=== PATIENT | female | born 1940 | race Caucasian/White ===

== ENCOUNTER → 2025-02-22 | Outpatient (CLI) | payer MEDICARE, BC, SELFPAY ==
[2025-02-22 10:29] LABS: Basophils % (Auto) 1 % (0-2.5); Eosinophils # (Auto) 0.2 Thou/mm3 (0.0-0.5); Eosinophils % (Auto) 5 % (0-10); Hematocrit 37.4 % (36.0-46.0); Hemoglobin 12.3 g/dL (12.0-16.0); Immature Granulocytes % (Auto) 0 % (0-0); Immature Granulocytes Auto 0.01 Thou/mm3 (0.00-0.00); Lymphocytes # (Auto) 1.5 Thou/mm3 (1.0-4.8); Lymphocytes % (Auto) 29 % (10-50); Mean Corpuscular HGB Conc 32.9 g/dl (31.0-37.0); Mean Corpuscular Hemoglobin 30.1 pg (25.0-35.0); Mean Corpuscular Volume 91 fL (80-100); Monocytes # (Auto) 0.4 Thou/mm3 (0.0-0.8); Monocytes % (Auto) 8 % (0-12); Neutrophils # (Auto) 2.8 Thou/mm3 (1.8-7.7); Neutrophils % (Auto) 57 % (37-80); Nucleated Red Blood Cell % 0 /100 WBC (0); Platelet Count 297 Thou/mm3 (140-440); RDW Standard Deviation 46.8 fL (36.4-46.3); Red Blood Count 4.09 Miln/mm3 (4.00-5.20); White Blood Count 4.9 Thou/mm3 (3.6-11.0)
[2025-02-22 10:46] LABS: Alanine Aminotransferase 18 U/L (10-49); Albumin, Serum 4.2 gm/dL (3.4-4.8); Albumin/Globulin Ratio 1.9 (1.2-2.2); Alkaline Phosphatase 132 U/L (46-116); Anion Gap 8 (7-16); Aspartate Amino Transferase 29 U/L (0-34); BUN/Creatinine Ratio 23 Ratio (12-20); Bilirubin,Total 0.7 mg/dL (0.3-1.2); Blood Urea Nitrogen 16 mg/dL (9-23); Calcium 8.8 mg/dL (8.3-10.6); Calcium (Corrected) 8.8 mg/dL (8.5-10.1); Carbon Dioxide 31.6 mMol/L (20.0-31.0); Chloride 105 mMol/L (98-107); Creatinine (Component) 0.7 mg/dL (0.6-1.3); Globulin 2.2 gm/dL (2.3-3.5); Glucose 94 mg/dL (74-106); Osmolality,Calculated 289 (275-295); Sodium 145 mMol/L (136-145); Total Protein 6.4 gm/dL (5.7-8.2); eGFR > 60 See Note
== END | disposition home or self-care (01) ==
LOC: SCTO 08:51
PROVIDERS: PCP Family Medicine; Referring Provider Internal Medicine Hematology & Oncology; Visit Provider Internal Medicine Hematology & Oncology
DX: C50.411 Malignant neoplasm of upper-outer quadrant of right female breast (principal)
CPT/HCPCS: 36415; 80053; 85025

== ENCOUNTER 2025-02-24 09:58 | Outpatient (RCR) | payer MEDICARE, BC, SELFPAY | END 2025-02-26 23:59 | disposition home or self-care (01) | LOC: SCTC 09:58 | PROVIDERS: PCP Family Medicine; Referring Provider Family Medicine; Visit Provider Nurse Practitioner Family | DX: Z08 Encounter for follow-up examination after completed treatment for malignant neoplasm (principal); Z85.3 Personal history of malignant neoplasm of breast; M81.0 Age-related osteoporosis without current pathological fracture; Z92.21 Personal history of antineoplastic chemotherapy; Z79.811 Long term (current) use of aromatase inhibitors | CPT/HCPCS: 99212; G0463 ==

== ENCOUNTER → 2025-03-04 | Outpatient (CLI) | payer MEDICARE, BC, SELFPAY ==
[2025-03-04 10:18] LABS: Basophils % (Auto) 0 % (0-2.5); Eosinophils # (Auto) 0.2 Thou/mm3 (0.0-0.5); Eosinophils % (Auto) 4 % (0-10); Immature Granulocytes % (Auto) 0 % (0-0); Immature Granulocytes Auto 0.02 Thou/mm3 (0.00-0.00); Lymphocytes # (Auto) 1.6 Thou/mm3 (1.0-4.8); Lymphocytes % (Auto) 30 % (10-50); Mean Corpuscular HGB Conc 33.3 g/dl (31.0-37.0); Mean Corpuscular Hemoglobin 29.8 pg (25.0-35.0); Mean Corpuscular Volume 89 fL (80-100); Monocytes # (Auto) 0.4 Thou/mm3 (0.0-0.8); Monocytes % (Auto) 8 % (0-12); Neutrophils # (Auto) 3.1 Thou/mm3 (1.8-7.7); Neutrophils % (Auto) 58 % (37-80); Nucleated Red Blood Cell % 0 /100 WBC (0); Platelet Count 306 Thou/mm3 (140-440); RDW Standard Deviation 45.6 fL (36.4-46.3); Red Blood Count 4.03 Miln/mm3 (4.00-5.20); White Blood Count 5.4 Thou/mm3 (3.6-11.0)
[2025-03-04 10:33] LABS: Alanine Aminotransferase 19 U/L (10-49); Albumin, Serum 4.2 gm/dL (3.4-4.8); Albumin/Globulin Ratio 2.2 (1.2-2.2); Alkaline Phosphatase 125 U/L (46-116); Anion Gap 9 (7-16); Aspartate Amino Transferase 29 U/L (0-34); BUN/Creatinine Ratio 21 Ratio (12-20); Bilirubin,Total 0.8 mg/dL (0.3-1.2); Blood Urea Nitrogen 15 mg/dL (9-23); Calcium 9.4 mg/dL (8.3-10.6); Calcium (Corrected) 9.4 mg/dL (8.5-10.1); Chloride 103 mMol/L (98-107); Creatinine (Component) 0.7 mg/dL (0.6-1.3); Globulin 1.9 gm/dL (2.3-3.5); Glucose 93 mg/dL (74-106); Osmolality,Calculated 282 (275-295); Sodium 141 mMol/L (136-145); Total Protein 6.1 gm/dL (5.7-8.2); eGFR > 60 See Note
[2025-03-04 10:51] LABS: CA 15-3 9.8 U/mL (<32.4); Carcinoembryonic Antigen 1.8 ng/mL (0.0-5.0)
== END | disposition home or self-care (01) ==
LOC: SCTO 09:23
PROVIDERS: PCP Family Medicine; Referring Provider Nurse Practitioner Family; Visit Provider Nurse Practitioner Family
DX: C50.411 Malignant neoplasm of upper-outer quadrant of right female breast (principal); M81.0 Age-related osteoporosis without current pathological fracture
CPT/HCPCS: 36415; 80053; 82378; 85025; 86300

== ENCOUNTER → 2025-03-21 | Outpatient (CLI) | payer MEDICARE, BC, SELFPAY ==
--- NOTE | 2025-03-21 | XR_ITS ---
EXAMINATION: Cervical spine, 5 views Technique: Cervical spine AP, AP odontoid, lateral, bilateral obliques, 5 views Exam date and time: March 21, 2025 1234 hours INDICATIONS: Patient fell 4 months ago with injury to the neck, neck pain. FINDINGS: Minimal 1.5 mm anterolisthesis C5 on C6 Prominent osteopenia No acute cervical fracture Mild degenerative disc disease C6-C7 Intact odontoid Moderate bilateral neural foraminal stenosis C3-C4 C5-C6 IMPRESSION: No cervical fracture Mild degenerative disc disease C6-C7 Moderate bilateral neural foraminal stenosis C3-C4, C5-C6
--- NOTE | 2025-03-21 | XR_ITS ---
Examination: Shoulder,right, 3 views Technique: Shoulder AP internal rotation, AP external rotation, Y view shoulder, 3 views Exam date and time :March 21, 2025 1234 hours INDICATIONS: Right shoulder pain 4 months FINDINGS: Advanced osteoarthritis glenohumeral joint No shoulder fracture Calcific tendinitis IMPRESSION: Advanced osteoarthritis glenohumeral joint
== END | disposition home or self-care (01) ==
PROVIDERS: PCP Family Medicine; Referring Provider Chiropractor; Visit Provider Chiropractor
DX: M19.011 Primary osteoarthritis, right shoulder (principal); M50.323 Other cervical disc degeneration at C6-C7 level; M48.02 Spinal stenosis, cervical region; M53.1 Cervicobrachial syndrome; M99.01 Segmental and somatic dysfunction of cervical region
CPT/HCPCS: 72050; 73030

== ENCOUNTER → 2025-03-24 | Outpatient (CLI) | payer MEDICARE, BC, SELFPAY ==
--- NOTE | 2025-03-24 14:15 | XR_ITS ---
Examination: Screening digital mammography, unilateral left Computer aided detection 3-D breast Tomosynthesis, unilateral Date and time of exam: March 24, 2025, 1405 hours Compared to mammograms dating to May 05, 2008h Indication: Screening Technique: Nonmagnified MLO, CC views of the left breast to been obtained, reconstructed from 3-D Tomosynthesis images. R2 computer aided detection program utilized for evaluation of suspicious masses and/or abnormal calcifications. 3-D Tomosynthesis images obtained. Findings: The breast is heterogeneously dense, which may obscure small masses 28 mm focal asymmetry upper outer left breast Impression: BI-RADS Category 0: Incomplete: Need additional imaging evaluation 28 mm focal asymmetry upper outer left breast, recommend follow-up spot tomographic views of this asymmetry as well as left breast sonography to complete the workup.
--- NOTE | 2025-03-24 14:30 | XR_ITS ---
Examination: Bone densitometry Date and time of exam:March 24, 2025 at 1430 hours INDICATIONS: Hysterectomy age 54 vitamin D calcium 16 years, personal history osteoporosis Technique: Lumbar spine and hip total bone mineralization values of an calculated. Peak reference and age match control results have been displayed. Findings: Lumbar spine total bone mineralization is0.989 gm/cm2. This is 0.5 standard deviations below peak reference. This is 2.3 standard deviations above age-matched controls. Hip total bone mineralization is 0.587 gm/cm2 This is 2.9 standard deviations below peak reference. This is 0.7 standard deviations below age-matched controls Impression: There is normal mineralization based on lumbar spine measurements. There is osteoporosis based on hip measurements Lumbar mineralization is decreased 7.2% compared with November 21, 2022 Hip mineralization is decreased 9.6% compared with November 21, 2022
== END | disposition home or self-care (01) ==
LOC: CDIM 13:53
PROVIDERS: PCP Nurse Practitioner Family; Referring Provider Nurse Practitioner Family; Visit Provider Nurse Practitioner Family
DX: Z12.31 Encounter for screening mammogram for malignant neoplasm of breast (principal); N64.89 Other specified disorders of breast; M81.0 Age-related osteoporosis without current pathological fracture
CPT/HCPCS: 77063; 77067; 77080

== ENCOUNTER 2025-03-28 10:50 | Outpatient (RCR) | payer MEDICARE, BC, SELFPAY | END 2025-03-28 23:59 | disposition home or self-care (01) | LOC: SCTC 10:50 | PROVIDERS: PCP Family Medicine; Referring Provider Family Medicine; Visit Provider Nurse Practitioner Family | DX: M81.0 Age-related osteoporosis without current pathological fracture (principal); Z85.3 Personal history of malignant neoplasm of breast | CPT/HCPCS: 96372; 99212; J0897; G0463 ==

== ENCOUNTER → 2025-04-28 | Outpatient (CLI) | payer MEDICARE, BC, SELFPAY ==
--- NOTE | 2025-04-28 09:30 | XR_ITS ---
Examination: Breast ultrasound, unilateral, left complete Date and time of exam: April 28, 2025 0955 hours INDICATIONS: Mammogram March 24, 2025 28 mm focal asymmetry upper outer left breast, personal history right breast cancer mastectomy 2007 Technique: Real-time jon scale ultrasonographic imaging performed left breast including all 4 quadrants as well as nipple retroareolar and axillary region. Findings: 2:00 nodule indistinct margins 16 x 13 x 14 mm 3:00 intramammary lymph node 7 x 4 x 6 mm , Multiple small lymph nodes IMPRESSION: BI-RADS Category 4: Suspicious for malignancy Suspicious nodule 2:00 position left breast, biopsy is needed to exclude breast carcinoma
--- NOTE | 2025-04-28 10:00 | XR_ITS ---
Examination: Diagnostic digital mammography, unilateral, left Computer aided detection 3-D breast Tomosynthesis, unilateral Date and time of exam: April 28, 2025 1023 hours INDICATIONS: Mammogram March 24, 2025 28 mm focal asymmetry upper outer left breast Technique: Nonmagnified MLO, CC views of the left breast have been obtained, reconstructed from 3-D Tomosynthesis images. R2 computer aided detection program utilized for evaluation of suspicious masses and/or abnormal calcifications. 3-D Tomosynthesis images obtained. Findings: The breast is heterogeneously dense, which may obscure small masses 2:00 nodule is depicted, better appreciated on the left breast sonogram today Impression: BI-RADS category 4: Suspicious for malignancy 2:00 nodule, better depicted on the left breast sonogram today, on the ultrasound measuring 16 x 13 x 14 mm with indistinct margins, biopsy is needed to exclude breast carcinoma, this nodule is amenable to ultrasound-guided breast biopsy for diagnosis
== END | disposition home or self-care (01) ==
LOC: CDIM 09:30
PROVIDERS: Referring Provider Nurse Practitioner Family; Visit Provider Nurse Practitioner Family
DX: R92.342 Mammographic extreme density, left breast (principal); N63.21 Unspecified lump in the left breast, upper outer quadrant; C50.411 Malignant neoplasm of upper-outer quadrant of right female breast
CPT/HCPCS: 76641; 77061; 77065; G0279

== ENCOUNTER 2025-05-10 10:01 | Outpatient (RCR) | payer MEDICARE, BC, SELFPAY | END 2025-05-29 23:59 | disposition home or self-care (01) | LOC: SCTC 10:01 | PROVIDERS: PCP Family Medicine; Referring Provider Nurse Practitioner Family; Visit Provider Nurse Practitioner Family | DX: Z08 Encounter for follow-up examination after completed treatment for malignant neoplasm (principal); Z85.3 Personal history of malignant neoplasm of breast; Z90.11 Acquired absence of right breast and nipple; N64.89 Other specified disorders of breast; M81.0 Age-related osteoporosis without current pathological fracture | CPT/HCPCS: 99212; G0463 ==

== ENCOUNTER 2025-06-08 08:24 | Outpatient (AMB) | payer MEDICARE, BC, SELFPAY ==
--- NOTE | 2025-06-08 09:04 | AMB.GYNCLNOT ---
Vital Signs 06/08/25 09:10 Weight 70.08 kg Weight Measurement Method Standing Scale BP 186/102 H Blood Pressure Source Automatic Cuff Blood Pressure Location Right Lower Arm Position Sitting Respiration 16 Pulse 95 Pulse Source Monitor Temp 97.2 F Temp Source Oral Pulse Oximetry (%) 98 Oxygen Delivery Method Room Air Allergies/Home Meds Allergies & Medications Allergies levofloxacin Allergy (Unknown, Verified 07/01/25 16:36) Rash Medication Reconciliation cyanocobalamin (vitamin B-12) 100 mcg tablet (Vitamin B-12) 100 mcg PO QDAY #0 tabs 04/21/15 [History Confirmed 06/08/25] geriatric multivitamin-min 1 tab PO DAILY #0 tabs 04/21/15 [History Confirmed 06/08/25] glucosamine sulfate 500 mg capsule 1,500 mg PO DAILY ##0 04/21/15 [History Confirmed 06/08/25] potassium 99 mg tablet 99 mg PO DAILY #0 tabs 04/21/15 [History Confirmed 06/08/25] ascorbic acid (vitamin C) 500 mg tablet (Vitamin C) 500 mg PO QDAY 01/19/21 [History Confirmed 06/08/25] calcium 600 mg capsule 1,000 mg PO DAILY 01/19/21 [History Confirmed 06/08/25] ferrous sulfate 325 mg (65 mg iron) tablet (Iron (ferrous sulfate)) 325 mg PO QDAY 01/19/21 [History Confirmed 06/08/25] gabapentin 100 mg tablet 100 mg PO BID 01/19/21 [History Confirmed 06/08/25] magnesium 100 mg tablet 100 mg PO DAILY 01/19/21 [History Confirmed 06/08/25] metoprolol tartrate 25 mg tablet 25 mg PO QDAY 01/19/21 [History Confirmed 06/08/25] tramadol 37.5 mg-acetaminophen 325 mg tablet 1 tab PO TID PRN pain #20 tabs 07/01/25 [Rx] Intake Visit Data Collection New Patient or Established: Established Patient (seen at [facility] within 3 years) Reason for Visit:: obc Seen by Clinical Staff ONLY (RN/MA): No Cementer Hand Required: No Do You Feel Safe at Home: Yes Authorities Contacted: N/A PCP or OBGYN visit in last 3 months: Yes Hx Now: Yes Are you currently on any form of Control: No Pain Present Currently: Yes Pain Scale Used: Fitzpatrick-Beckham/Numerical Pain scale:: 0 Smoking Status Smoking Status: Never smoker 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 Menstrual regularity: irregular Monthly: No Age at menarche: 17 Menopausal: Yes Currently 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 Past Medical History: No Hx Neurological Disorders, Yes Hx Breast Cancer (RIGHT HAD MASTECTOMY), Yes Hx Cardiac Disorders, Yes Hx Hypertension (TAKES MED), Yes Hx Cancer, No Hx Blood Disorders, No Hx Anemia, No Hx Gastrointestinal Disorders, No Hx Renal Disease, No Hx Diabetes Mellitus Type 1, No Hx Diabetes Mellitus Type 2 and Yes Hx Hysterectomy (with bilateral salpinogectomy 1999) Questionnaires Covid-19 Vaccine Questionnaire Has patient been vacinated for Covid-19 Have you been vacinated for Covid-19: Yes PHQ-9 PHQ-2 Over the last 2 weeks, how often have you been bothered by any of the following problems? 1. Little interest or pleasure in doing things: not at all 2. Feeling down, depressed, or hopeless: not at all Total score: 0 PHQ-9 3. Trouble falling or staying asleep, or sleeping too much: Not at all 4. Feeling tired or having little energy: Not at all 5. Poor appetite or overeating: Not at all 6. Feeling bad about yourself - or that you are a failure or have let yourself or your family down: Not at all 7. Trouble concentrating on things, such as reading the newspaper or watching television: Not at all 8. Moving or speaking so slowly that other people could have noticed? - Or the opposite - being so fidgety or restless that you have been moving around a lot more than usual: not at all 9. Thoughts that you would be better off or of hurting yourself in some way: Not at all Total score: 0 If you checked off any problems, how difficult have these problems made it for you to do your work, take care of things at home, or get along with other people?: not difficult at all Source: Developed by Drs. Jl Esposito, Nieves Arauz, Hector Rob and colleagues, with an educational pranav from [employer]. Depression screen completed yes Social History Living Situation History Marital Status: Lives With: Family Housing: House Tobacco History Smoking Status: Never smoker Second Hand Smoke Exposure: No Alcohol History Alcohol Intake: Never Domestic Abuse History Do You Feel Safe at Home: Yes History of Present Illness HPI Narrative Pessary management Patient is an 84-year-old presenting for pessary management. She has had her pessary for 10 years, previously managed by Dr. Adkins in [place]. She reports cleaning the pessary herself at home and visiting Dr. Adkins every six months for check-ups. Three months ago, she experienced a slight kidney infection that was treated with antibiotics. She has a history of hysterectomy due to hemorrhaging and a history of breast cancer, with her right breast removed. Currently, [facility] due to a newly discovered lump in her left breast. Medical History: - Kidney infection treated with antibiotics three months ago - Breast cancer with right breast removal - Hypertension Surgical History: - Right breast removal due to breast cancer - Hysterectomy due to hemorrhaging - Gastric bypass Obstetric History: - GPAL: A0 L5 - All 5 pregnancies resulted in vaginal deliveries Medications: - Metoprolol - [id number] multivitamins Social History: - Obstetric History: 5, para 5, all vaginal deliveries Exam General General Appearance: alert, in no apparent distress and healthy appearing Head Head exam: atraumatic Neck Neck exam: Present normal inspection and trachea midline Chest Chest inspection: Present normal inspection and symmetric chest wall rise External exam: Present normal external exam; Absent tenderness Neuro Neurological exam: Present oriented X3 Psych Psychiatric exam: Present normal affect and normal mood Assessment & Plan Diagnosis / Problem List (1) POP-Q stage 3 cystocele: Status: Acute Plan Pelvic organ prolapse Assessment: Patient has been using a pessary for 10 years for management of pelvic organ prolapse. She has been self-cleaning the device at home and had regular follow-ups every six months with her previous provider. No current complaints related to the pessary were reported. Plan: - Continue current pessary use - Educate patient on signs of infection and erosion to monitor for (e.g., fresh blood) - Recommend use of coconut oil for irritation if needed - Follow-up appointment in 1 month to discuss urine results and examine pessary - Schedule next routine check-up in 6 months Urinary tract infection Assessment: Patient reports a history of slight kidney infection treated with antibiotics three months ago. Current infection status is unclear. Plan: - Order urine culture to ensure previous infection has cleared - Call patient with results if any abnormalities are found Breast mass Assessment: Patient has a history of right breast removal due to breast cancer. She reports a new lump in her left breast and is [facility] Plan: - Await results from upcoming breast center follow-up - Discuss findings at next appointment in 1 month Advanced Care Planning Advance care planning discussed with:: patient
[2025-06-08 09:10] VITALS: BP 186/102; PULSE 95; RESP 16; TEMP 36.2; O2SAT 98
== END 2025-06-08 09:15 | disposition home or self-care (01) ==
PROVIDERS: Supervising Provider Obstetrics & Gynecology; Visit Provider Obstetrics & Gynecology
DX: N81.10 Cystocele, unspecified (principal); N81.89 Other female genital prolapse; N39.0 Urinary tract infection, site not specified; N63.20 Unspecified lump in the left breast, unspecified quadrant; I10 Essential (primary) hypertension; Z90.710 Acquired absence of both cervix and uterus; Z85.3 Personal history of malignant neoplasm of breast; Z98.84 Bariatric surgery status; Z90.11 Acquired absence of right breast and nipple; Z79.899 Other long term (current) drug therapy; Z88.1 Allergy status to other antibiotic agents
CPT/HCPCS: 99203; G0463

== ENCOUNTER 2025-06-23 09:13 | Outpatient (RCR) | payer MEDICARE, BC, SELFPAY | END 2025-06-28 23:59 | disposition home or self-care (01) | LOC: SCTC 09:13 | PROVIDERS: PCP Family Medicine; Referring Provider Family Medicine; Visit Provider Internal Medicine Hematology & Oncology | DX: C50.412 Malignant neoplasm of upper-outer quadrant of left female breast (principal); Z17.0 Estrogen receptor positive status [ER+]; Z17.22 Progesterone receptor negative status; Z17.32 Human epidermal growth factor receptor 2 negative status; Z90.11 Acquired absence of right breast and nipple; Z92.21 Personal history of antineoplastic chemotherapy; M81.0 Age-related osteoporosis without current pathological fracture; Z79.810 Long term (current) use of selective estrogen receptor modulators (SERMs) | CPT/HCPCS: 99212; G0463 ==

== ENCOUNTER → 2025-07-14 | Outpatient (CLI) | payer MEDICARE, BC, SELFPAY ==
--- NOTE | 2025-07-14 09:59 | XR_ITS ---
Examination: Wrist, left 3 views Technique: Wrist AP, oblique, lateral 3 views Date and time of exam: July 14, 2025, 10:00 a.m., comparison July 01, 2025 INDICATIONS: Acute fracture distal radius July 01, 2025 FINDINGS: Stable alignment fractures distal radial metaphysis Ulnar styloid tip fracture Severe osteopenia IMPRESSION: Stable and satisfactory alignment fractures distal radial metaphysis
== END | disposition home or self-care (01) ==
LOC: CDIM 09:45
PROVIDERS: PCP Family Medicine; Referring Provider Orthopaedic Surgery; Visit Provider Orthopaedic Surgery
DX: S52.532D Colles' fracture of left radius, subsequent encounter for closed fracture with routine healing (principal); X58.XXXD Exposure to other specified factors, subsequent encounter
CPT/HCPCS: 73110

== ENCOUNTER → 2025-07-18 | Outpatient (CLI) | payer MEDICARE, BC, SELFPAY ==
[2025-07-18 12:00] LABS: Basophils # (Auto) 0.1 Thou/mm3 (0.0-0.2); Basophils % (Auto) 1 % (0-2.5); Eosinophils # (Auto) 0.2 Thou/mm3 (0.0-0.5); Eosinophils % (Auto) 3 % (0-10); Hematocrit 37.3 % (36.0-46.0); Hemoglobin 11.8 g/dL (12.0-16.0); Immature Granulocytes Auto 0.01 Thou/mm3 (0.00-0.00); Lymphocytes # (Auto) 1.7 Thou/mm3 (1.0-4.8); Lymphocytes % (Auto) 29 % (10-50); Mean Corpuscular HGB Conc 31.6 g/dl (31.0-37.0); Mean Corpuscular Hemoglobin 29.6 pg (25.0-35.0); Mean Corpuscular Volume 94 fL (80-100); Monocytes # (Auto) 0.4 Thou/mm3 (0.0-0.8); Monocytes % (Auto) 7 % (0-12); Neutrophils # (Auto) 3.5 Thou/mm3 (1.8-7.7); Neutrophils % (Auto) 60 % (37-80); Nucleated Red Blood Cell # 0.00 Thou/mm3 (0.00-0.00); Nucleated Red Blood Cell % 0 /100 WBC (0); Platelet Count 363 Thou/mm3 (140-440); RDW Standard Deviation 47.3 fL (36.4-46.3); Red Blood Count 3.99 Miln/mm3 (4.00-5.20); White Blood Count 5.9 Thou/mm3 (3.6-11.0)
[2025-07-18 12:09] LABS: Alanine Aminotransferase 13 U/L (10-49); Albumin, Serum 4.1 gm/dL (3.4-4.8); Albumin/Globulin Ratio 1.9 (1.2-2.2); Alkaline Phosphatase 106 U/L (46-116); Anion Gap 11 (7-16); Aspartate Amino Transferase 28 U/L (0-34); BUN/Creatinine Ratio 14 Ratio (12-20); Bilirubin,Total 0.5 mg/dL (0.3-1.2); Blood Urea Nitrogen 11 mg/dL (9-23); Calcium 8.3 mg/dL (8.3-10.6); Calcium (Corrected) 8.3 mg/dL (8.5-10.1); Carbon Dioxide 24.2 mMol/L (20.0-31.0); Chloride 110 mMol/L (98-107); Creatinine (Component) 0.8 mg/dL (0.6-1.3); Globulin 2.2 gm/dL (2.3-3.5); Glucose 108 mg/dL (74-106); Osmolality,Calculated 289 (275-295); Potassium 4.0 mMol/L (3.4-5.1); Sodium 145 mMol/L (136-145); Total Protein 6.3 gm/dL (5.7-8.2); eGFR > 60 See Note
== END | disposition home or self-care (01) ==
PROVIDERS: PCP Family Medicine; Referring Provider Internal Medicine Hematology & Oncology; Visit Provider Internal Medicine Hematology & Oncology
DX: C50.411 Malignant neoplasm of upper-outer quadrant of right female breast (principal)
CPT/HCPCS: 36415; 80053; 85025

== ENCOUNTER → 2025-07-25 | Outpatient (CLI) | payer MEDICARE, BC, SELFPAY ==
[2025-07-25 10:31] LABS: Basophils # (Auto) 0.0 Thou/mm3 (0.0-0.2); Basophils % (Auto) 1 % (0-2.5); Eosinophils # (Auto) 0.2 Thou/mm3 (0.0-0.5); Eosinophils % (Auto) 4 % (0-10); Hematocrit 37.7 % (36.0-46.0); Hemoglobin 11.8 g/dL (12.0-16.0); Immature Granulocytes Auto 0.03 Thou/mm3 (0.00-0.00); Lymphocytes # (Auto) 1.5 Thou/mm3 (1.0-4.8); Lymphocytes % (Auto) 27 % (10-50); Mean Corpuscular HGB Conc 31.3 g/dl (31.0-37.0); Mean Corpuscular Hemoglobin 29.6 pg (25.0-35.0); Mean Corpuscular Volume 95 fL (80-100); Monocytes # (Auto) 0.5 Thou/mm3 (0.0-0.8); Monocytes % (Auto) 8 % (0-12); Neutrophils # (Auto) 3.4 Thou/mm3 (1.8-7.7); Neutrophils % (Auto) 60 % (37-80); Nucleated Red Blood Cell # 0.00 Thou/mm3 (0.00-0.00); Nucleated Red Blood Cell % 0 /100 WBC (0); Platelet Count 304 Thou/mm3 (140-440); RDW Standard Deviation 48.1 fL (36.4-46.3); Red Blood Count 3.99 Miln/mm3 (4.00-5.20); White Blood Count 5.7 Thou/mm3 (3.6-11.0)
[2025-07-25 10:54] LABS: Alanine Aminotransferase 14 U/L (10-49); Albumin, Serum 4.0 gm/dL (3.4-4.8); Albumin/Globulin Ratio 1.9 (1.2-2.2); Alkaline Phosphatase 105 U/L (46-116); Anion Gap 8 (7-16); Aspartate Amino Transferase 26 U/L (0-34); BUN/Creatinine Ratio 18 Ratio (12-20); Bilirubin,Total 0.6 mg/dL (0.3-1.2); Blood Urea Nitrogen 11 mg/dL (9-23); Calcium 8.2 mg/dL (8.3-10.6); Calcium (Corrected) 8.2 mg/dL (8.5-10.1); Carbon Dioxide 26.7 mMol/L (20.0-31.0); Chloride 109 mMol/L (98-107); Creatinine (Component) 0.6 mg/dL (0.6-1.3); Globulin 2.1 gm/dL (2.3-3.5); Glucose 87 mg/dL (74-106); Osmolality,Calculated 285 (275-295); Potassium 4.1 mMol/L (3.4-5.1); Sodium 144 mMol/L (136-145); Total Protein 6.1 gm/dL (5.7-8.2); eGFR > 60 See Note
== END | disposition home or self-care (01) ==
LOC: SCTO 09:45
PROVIDERS: PCP Family Medicine; Referring Provider Internal Medicine Hematology & Oncology; Visit Provider Internal Medicine Hematology & Oncology
DX: C50.411 Malignant neoplasm of upper-outer quadrant of right female breast (principal)
CPT/HCPCS: 36415; 80053; 85025

== ENCOUNTER → 2025-07-29 | Outpatient (CLI) | payer MEDICARE, BC, SELFPAY ==
--- NOTE | 2025-07-29 10:38 | XR_ITS ---
Examination: Wrist, right 3 views Technique: Wrist AP, oblique, lateral 3 views Date and time of exam: July 29, 2025, 1112 hours INDICATIONS: Acute fracture distal radius July 01, 2025 FINDINGS: Partial healing fracture, comminuted, intra-articular distal radial metaphysis with stable alignment compared with July 14, 2025 Fracture off the ulnar styloid tip Prominent osteopenia IMPRESSION: Partial healing comminuted intra-articular fracture distal radial metaphysis with stable alignment
== END | disposition home or self-care (01) ==
PROVIDERS: PCP Family Medicine; Referring Provider Orthopaedic Surgery; Visit Provider Orthopaedic Surgery
DX: S52.92XA Unspecified fracture of left forearm, initial encounter for closed fracture (principal); X58.XXXA Exposure to other specified factors, initial encounter
CPT/HCPCS: 73110

== ENCOUNTER → 2025-08-04 | Outpatient (CLI) | payer MEDICARE, BC, SELFPAY ==
[2025-08-04 07:43] LABS: Misc Send Out* See Sep Rpt
[2025-08-04 08:34] LABS: Basophils # (Auto) 0.1 Thou/mm3 (0.0-0.2); Basophils % (Auto) 1 % (0-2.5); Eosinophils # (Auto) 0.2 Thou/mm3 (0.0-0.5); Eosinophils % (Auto) 5 % (0-10); Hematocrit 38.4 % (36.0-46.0); Hemoglobin 12.2 g/dL (12.0-16.0); Immature Granulocytes Auto 0.01 Thou/mm3 (0.00-0.00); Lymphocytes # (Auto) 1.6 Thou/mm3 (1.0-4.8); Lymphocytes % (Auto) 30 % (10-50); Mean Corpuscular HGB Conc 31.8 g/dl (31.0-37.0); Mean Corpuscular Hemoglobin 29.5 pg (25.0-35.0); Mean Corpuscular Volume 93 fL (80-100); Monocytes # (Auto) 0.4 Thou/mm3 (0.0-0.8); Monocytes % (Auto) 7 % (0-12); Neutrophils # (Auto) 3.0 Thou/mm3 (1.8-7.7); Neutrophils % (Auto) 57 % (37-80); Nucleated Red Blood Cell # 0.00 Thou/mm3 (0.00-0.00); Nucleated Red Blood Cell % 0 /100 WBC (0); Platelet Count 267 Thou/mm3 (140-440); RDW Standard Deviation 47.1 fL (36.4-46.3); Red Blood Count 4.14 Miln/mm3 (4.00-5.20); White Blood Count 5.3 Thou/mm3 (3.6-11.0)
[2025-08-04 08:47] LABS: Alanine Aminotransferase 13 U/L (10-49); Albumin, Serum 4.1 gm/dL (3.4-4.8); Albumin/Globulin Ratio 2.3 (1.2-2.2); Alkaline Phosphatase 89 U/L (46-116); Anion Gap 8 (7-16); Aspartate Amino Transferase 27 U/L (0-34); BUN/Creatinine Ratio 18 Ratio (12-20); Bilirubin,Total 0.7 mg/dL (0.3-1.2); Blood Urea Nitrogen 11 mg/dL (9-23); Calcium 8.3 mg/dL (8.3-10.6); Calcium (Corrected) 8.3 mg/dL (8.5-10.1); Carbon Dioxide 24.0 mMol/L (20.0-31.0); Chloride 112 mMol/L (98-107); Creatinine (Component) 0.6 mg/dL (0.6-1.3); Globulin 1.8 gm/dL (2.3-3.5); Glucose 88 mg/dL (74-106); Osmolality,Calculated 285 (275-295); Potassium 4.0 mMol/L (3.4-5.1); Sodium 144 mMol/L (136-145); Total Protein 5.9 gm/dL (5.7-8.2); eGFR > 60 See Note
== END | disposition home or self-care (01) ==
LOC: SCTO 07:17
PROVIDERS: PCP Family Medicine; Referring Provider Nurse Practitioner Family; Visit Provider Internal Medicine Hematology & Oncology
DX: C50.411 Malignant neoplasm of upper-outer quadrant of right female breast (principal)
CPT/HCPCS: 36415; 80053; 85025

== ENCOUNTER 2025-08-16 10:53 | Outpatient (AMB) | payer MEDICARE, BC, SELFPAY ==
[2025-08-16 11:07] VITALS: BP 139/78; PULSE 76; RESP 16; TEMP 36.2; O2SAT 95; BMI 25.3
--- NOTE | 2025-08-16 11:07 | GYNCLNT_ITS ---
Vital Signs 08/16/25 11:07 Height 1.65 m Height Method Stated Weight 69.059 kg Weight Measurement Method Standing Scale BMI 25.3 BP 139/78 H Blood Pressure Source Automatic Cuff Blood Pressure Location Left Upper Arm Position Sitting Respiration 16 Pulse 76 Pulse Source Monitor Temp 97.2 F Temp Source Oral Pulse Oximetry (%) 95 Oxygen Delivery Method Room Air Allergies/Home Meds Allergies & Medications Allergies levofloxacin Allergy (Unknown, Verified 08/16/25 11:07) Rash Medication Reconciliation cyanocobalamin (vitamin B-12) 100 mcg tablet (Vitamin B-12) 100 mcg PO QDAY #0 tabs 04/21/15 [History Confirmed 08/16/25] geriatric multivitamin-min 1 tab PO DAILY #0 tabs 04/21/15 [History Confirmed 08/16/25] glucosamine sulfate 500 mg capsule 1,500 mg PO DAILY ##0 04/21/15 [History Confirmed 08/16/25] potassium 99 mg tablet 99 mg PO DAILY #0 tabs 04/21/15 [History Confirmed 08/16/25] ascorbic acid (vitamin C) 500 mg tablet (Vitamin C) 500 mg PO QDAY 01/19/21 [History Confirmed 08/16/25] calcium 600 mg capsule 1,000 mg PO DAILY 01/19/21 [History Confirmed 08/16/25] ferrous sulfate 325 mg (65 mg iron) tablet (Iron (ferrous sulfate)) 325 mg PO QDAY 01/19/21 [History Confirmed 08/16/25] gabapentin 100 mg tablet 100 mg PO BID 01/19/21 [History Confirmed 08/16/25] magnesium 100 mg tablet 100 mg PO DAILY 01/19/21 [History Confirmed 08/16/25] metoprolol tartrate 25 mg tablet 25 mg PO QDAY 01/19/21 [History Confirmed 08/16/25] tramadol 37.5 mg-acetaminophen 325 mg tablet 1 tab PO TID PRN pain #20 tabs 07/01/25 [Rx Confirmed 08/16/25] Intake Visit Data Collection New Patient or Established: Established Patient (seen at [facility] within 3 years) Reason for Visit:: DISCUSS LAB RESULTS Seen by Clinical Staff ONLY (RN/MA): No Children'S Librarian Required: No Do You Feel Safe at Home: Yes Authorities Contacted: N/A PCP or OBGYN visit in last 3 months: Yes Hx Now: No Are you currently on any form of Control: No Pain Present Currently: No Pain Scale Used: Fitzpatrick-Beckham/Numerical Pain scale:: 0 Smoking Status Smoking Status: Never smoker Immunizations Flu Vaccine in the Last 12 Months: Yes Date of most recent flu vaccination: 06/23/25 Flu Vaccine Exclusion Criteria: Already Received 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 Menopausal: Yes Currently sexually active: No 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 Past Medical History: No Hx Neurological Disorders, Yes Hx Breast Cancer (RIGHT HAD MASTECTOMY), Yes Hx Cardiac Disorders, Yes Hx Hypertension (TAKES MED), Yes Hx Cancer, No Hx Blood Disorders, No Hx Anemia, No Hx Gastrointestinal D isorders, No Hx Renal Disease, No Hx Diabetes Mellitus Type 1, No Hx Diabetes Mellitus Type 2 and Yes Hx Hysterectomy (with bilateral salpinogectomy 1999) Questionnaires Covid-19 Vaccine Questionnaire Has patient been vacinated for Covid-19 Have you been vacinated for Covid-19: Yes PHQ-9 PHQ-2 Over the last 2 weeks, how often have you been bothered by any of the following problems? 1. Little interest or pleasure in doing things: not at all 2. Feeling down, depressed, or hopeless: not at all Total score: 0 PHQ-9 3. Trouble falling or staying asleep, or sleeping too much: Not at all 4. Feeling tired or having little energy: Not at all 5. Poor appetite or overeating: Not at all 6. Feeling bad about yourself - or that you are a failure or have let yourself or your family down: Not at all 7. Trouble concentrating on things, such as reading the newspaper or watching television: Not at all 8. Moving or speaking so slowly that other people could have noticed? - Or the opposite - being so fidgety or restless that you have been moving around a lot more than usual: not at all 9. Thoughts that you would be better off or of hurting yourself in some way: Not at all Total score: 0 Source: Developed by Drs. Jl Esposito, Nieves Arauz, Hector Rob and colleagues, with an educational pranav from [employer]. Depression screen completed yes Social History Living Situation History Lives With: Family Housing: House Tobacco History Smoking Status: Never smoker Second Hand Smoke Exposure: No Alcohol History Alcohol Intake: Never Domestic Abuse History Do You Feel Safe at Home: Yes History of Present Illness HPI Narrative Thea Mckenna presents for follow-up on pessary management and recurrent UTI. She recently had a breast biopsy that showed invasive carcinoma and is scheduled for surgery on August [address] Arugelles in [place]. Regarding her UTI history, her last urine culture was positive for Klebsiella. However, she reports she has not had any UTI symptoms recently and states I haven't had any problem. She mentions taking a urine test before but does not report any current urinary symptoms. For her pessary management, she continues to clean the pessary once a month as recommended and reports no issues with this routine. The patient also mentions she recently broke her wrist but states it is very good and getting better. She continues to wear a brace as a precautionary measure, noting that when she gets busy doing activities, she thinks oh, I better not do that, so I have to wear that. She reports a recent positive life event where all seven of her grandchildren from various locations surprised her with an unplanned visit for the weekend. She describes this as a total shock that initially caused her to shake and cry from the emotional impact, but ultimately was a wonderful experience where the grandchildren took care of everything and they spent time playing games together. She is an 85-year-old female. The patient lives at home and has 7 grandchildren from various locations including [place], [place], [place], and [place]. ROS: Genitourinary: Negative for UTI symptoms. Exam General General Appearance: alert, in no apparent distress and healthy appearing Head Head exam: atraumatic Neck Neck exam: Present normal inspection and trachea midline Chest Chest inspection: Present normal inspection and symmetric chest wall rise External exam: Present normal external exam; Absent tenderness Neuro Neurological exam: Present oriented X3 Psych Psychiatric exam: Present normal affect and normal mood Office Procedures [facility] Clinic LOC & Office Proc's Nursing/Assessment Patient Status: Established Patient OB Clinic Nursing Assessment: Medication Reconciliation, Update PMH in EMR and Vital Signs OB Clinic Coordination of Care: Complex Care and Chronic Disease 1-5, Consent,records obtained, informed consent, Education Simp Pt/Fam, Lab and Imaging orders, Results/Orders obtained and Staff clarify orders Established Patient Charge Established Patient Point Assignment: 105 Established Patient Point Charge: EP Level 3 (80-115) Assessment & Plan Diagnosis / Problem List (1) Malignant neoplasm of unspecified site of right female breast: Status: Acute (2) POP-Q stage 3 cystocele: Status: Acute (3) Presence of urogenital implants: Status: Acute Plan Invasive Breast Carcinoma: - Confirmed invasive carcinoma on recent breast biopsy. - Scheduled for surgical intervention with Dr. Arguelles in [place] on August 29. Plan: - Proceed with scheduled breast cancer surgery on August [address] Arguelles in [place]. Pessary Management: - Patient managing pessary well with monthly cleaning routine. - No current issues reported. - Care transferred from [place] provider to local management. Plan: - Continue current pessary management with monthly cleaning. - Patient to cancel any existing appointments in [place] as care will be managed locally. Recurrent UTI with Klebsiella: - May urine culture positive for Klebsiella, likely contamination from GI tract. - Patient currently asymptomatic with no UTI symptoms reported. Plan: - No treatment needed for asymptomatic Klebsiella bacteriuria. - If symptoms develop, treat with ciprofloxacin based on sensitivity results. Wrist Fracture: - Patient sustained wrist fracture and is healing well. - Continues to wear protective brace as precautionary measure during activities. Plan: - Continue current management as fracture is healing appropriately. - Follow-up appointment scheduled in 3 months to reassess after breast surgery completion. Advanced Care Planning Advance care planning discussed with:: patient
== END 2025-08-16 11:13 | disposition home or self-care (01) ==
LOC: HODSOBC 10:53
PROVIDERS: Supervising Provider Obstetrics & Gynecology; Visit Provider Obstetrics & Gynecology
DX: C50.911 Malignant neoplasm of unspecified site of right female breast (principal); N81.10 Cystocele, unspecified; Z96.0 Presence of urogenital implants; S62.109D Fracture of unspecified carpal bone, unspecified wrist, subsequent encounter for fracture with routine healing; I10 Essential (primary) hypertension; Z87.440 Personal history of urinary (tract) infections; Z90.11 Acquired absence of right breast and nipple; Z90.710 Acquired absence of both cervix and uterus; Z90.79 Acquired absence of other genital organ(s); Z79.899 Other long term (current) drug therapy; Z88.1 Allergy status to other antibiotic agents; X58.XXXD Exposure to other specified factors, subsequent encounter
CPT/HCPCS: 99213; G0463

== ENCOUNTER → 2025-08-16 | Outpatient (CLI) | payer MEDICARE, BC, SELFPAY ==
[2025-08-16 10:13] LABS: Alanine Aminotransferase 14 U/L (10-49); Albumin, Serum 3.9 gm/dL (3.4-4.8); Albumin/Globulin Ratio 2.3 (1.2-2.2); Alkaline Phosphatase 80 U/L (46-116); Anion Gap 11 (7-16); Aspartate Amino Transferase 28 U/L (0-34); BUN/Creatinine Ratio 20 Ratio (12-20); Bilirubin,Total 0.6 mg/dL (0.3-1.2); Blood Urea Nitrogen 12 mg/dL (9-23); Calcium 7.9 mg/dL (8.3-10.6); Calcium (Corrected) 8.0 mg/dL (8.5-10.1); Carbon Dioxide 24.7 mMol/L (20.0-31.0); Chloride 111 mMol/L (98-107); Creatinine (Component) 0.6 mg/dL (0.6-1.3); Globulin 1.7 gm/dL (2.3-3.5); Glucose 89 mg/dL (74-106); Osmolality,Calculated 291 (275-295); Potassium 3.6 mMol/L (3.4-5.1); Sodium 147 mMol/L (136-145); Total Protein 5.6 gm/dL (5.7-8.2); eGFR > 60 See Note
[2025-08-16 10:28] LABS: CA 15-3 12.6 U/mL (<32.4); Carcinoembryonic Antigen 1.6 ng/mL (0.0-5.0)
[2025-08-16 11:53] LABS: Basophils # (Auto) 0.0 Thou/mm3 (0.0-0.2); Basophils % (Auto) 0 % (0-2.5); Eosinophils # (Auto) 0.2 Thou/mm3 (0.0-0.5); Eosinophils % (Auto) 3 % (0-10); Hematocrit 34.8 % (36.0-46.0); Hemoglobin 11.2 g/dL (12.0-16.0); Immature Granulocytes Auto 0.01 Thou/mm3 (0.00-0.00); Lymphocytes # (Auto) 1.3 Thou/mm3 (1.0-4.8); Lymphocytes % (Auto) 29 % (10-50); Mean Corpuscular HGB Conc 32.2 g/dl (31.0-37.0); Mean Corpuscular Hemoglobin 29.6 pg (25.0-35.0); Mean Corpuscular Volume 92 fL (80-100); Monocytes # (Auto) 0.3 Thou/mm3 (0.0-0.8); Monocytes % (Auto) 7 % (0-12); Neutrophils # (Auto) 2.8 Thou/mm3 (1.8-7.7); Neutrophils % (Auto) 61 % (37-80); Nucleated Red Blood Cell # 0.00 Thou/mm3 (0.00-0.00); Nucleated Red Blood Cell % 0 /100 WBC (0); Platelet Count 260 Thou/mm3 (140-440); RDW Standard Deviation 48.0 fL (36.4-46.3); Red Blood Count 3.78 Miln/mm3 (4.00-5.20); White Blood Count 4.7 Thou/mm3 (3.6-11.0)
== END | disposition home or self-care (01) ==
PROVIDERS: PCP Family Medicine; Referring Provider Nurse Practitioner Family; Visit Provider Nurse Practitioner Family
DX: C50.411 Malignant neoplasm of upper-outer quadrant of right female breast (principal)
CPT/HCPCS: 36415; 80053; 82378; 85025; 86300

== ENCOUNTER 2025-08-18 13:49 | Outpatient (RCR) | payer MEDICARE, BC, SELFPAY ==
--- NOTE | 2025-08-18 14:18 | CTCFLWUP_ITS ---
Patient: LIZETTE FIGUEROA : 1940 Page 4 of 6 FOLLOW UP NOTE DATE OF SERVICE: 08/18/2025 NAME: LIZETTE FIGUEROA ACCOUNT: [id number] : 1940 AGE: 85 INTERVAL HISTORY: Subjective Patient is doing well on tamoxifen . she is having surgery on aug [address] Arguelles. 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 She has a history of invasive breast cancer in the left breast that was ER positive, for which she received adjuvant chemotherapy, one year of Herceptin, followed by letrozole for 5 years until 2012. She remained cancer-free after completing that treatment regimen. The patient recently underwent a biopsy on June 13, 2025, which revealed invasive lobular carcinoma measuring 0.5 cm. The tumor is ER more than 95% positive and IN 0 or 2-zero. Physical examination reveals at least a 5 centimeter lobulated mass in the left breast, with no palpable axillary mass or lymph nodes. Regarding her bone health, she has been on Prolia since 2020 for osteoporosis. Her last bone density study in February 2025 showed normal lumbar spine but osteoporosis in the hips with decreased mineralization. She continues taking calcium and vitamin D at home and reports taking vitamin D with fatty food, avoiding coffee or tea with it. The patient has a history of gastric bypass surgery and reports taking supplements, eating fresh vegetables, and avoiding beef. She has been reducing her tea intake as recommended for her bone health management. Medical History - Osteoporosis - Stage one hormone receptor positive breast cancer diagnosed in May 2008 - History of gastric bypass surgery Surgical History - Gastric bypass surgery Medications and Supplements - Letrozole for 5 years - Last taken in 2012, discontinued after completing 5-year course - Prolia since 2020 - Calcium and vitamin D - Herceptin for one year - Discontinued after completing one-year course Social History - Diet: History of gastric bypass surgery, takes supplements, eats fresh vegetables, avoids beef - Substance Use: Drinks tea (plan to reduce intake), takes vitamin D with fatty food rather than coffee or tea Objective Physical Examination Musculoskeletal: Left breast reveals at least 5 centimeter lobulated mass. No axillary mass or lymph nodes are palpable. Laboratory, Imaging, and Diagnostic Test Results - Date: 06/13/2025 - Breast biopsy: Invasive lobular carcinoma, 0.5 cm, ER >95%, IN 0-2% - Date: February 2025 - Bone density scan: Normal lumbar spine, osteoporosis in hips, decreased mineralization - Date: 2007 - Breast biopsy: Invasive breast cancer, left breast, ER positive ONCOLOGY HISTORY: DIAGNOSIS: History of stage I, hormone receptor positive, HER-2/nate overexpressed breast cancer (May 2008) Osteoporosis Malignant neoplasm of upper-outer quadrant of right female breast [ICD10] C50.411 DATE OF DIAGNOSIS: STAGE/TNM: TREATMENT HISTORY: Care?Plan Start?Date Cycle Day Intent PROLia?60mg?every?6?months 11/22/2020 1 180 Palliative PROLia?60mg?every?6?months 03/17/2025 1 180 Palliative Reclast 03/29/2025 1 365 Palliative Xgeva?120?mg?q?monthly?for?3?months,?followed?by?q?3?months 08/11/2025 1 90 Palliative HISTORY OF PRESENT ILLNESS: Lziette Figueroa is a 85-year-old female with history of stage I, hormone receptor positive, HER-2/nate overexpressed breast cancer status post a resection in May 2008 followed by adjuvant chemotherapy, 1 year of Herceptin as well as letrozole for about 5 years. She has been recurrence free. 11/04/2018: I am seeing the patient for the first time today. Since last visit patient had bone density test done on 10/15/2018 which showed osteoporosis based on the hip measurements. Patient had one Prolia injections a few years ago. Currently she is taking calcium and vitamin D. She also had a history of gastric bypass surgery about 10 years ago. She denies any complaints today. Denies any cough chest pain shortness of breath abdominal pain or leg cramps. She denies any weight loss or loss of appetite. 10/25/2020: Bone density test? 11/08/2020: Left breast mammogram? 03/06/2023: Left breast diagnostic mammogram? 03/31/2023: Left breast ultrasound? 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 B12 - 1,000 microgram Each Day 2. Calcium 600 with Vitamin D3 - 1 tab Twice a Day 3. gabapentin - 100 mg Twice a Day 4. glucosamine-chondroitin - 750-600 mg 1 tab Twice a Day 5. Iron Chews - 1 tab Each Day 6. multivitamin - 1 tab Each Day 7. potassium gluconate - 1 tab Each Day 8. tamoxifen - 20 mg 1 tab Daily 9. Vitamin C - 1 tab Each Day 10. Vitamin D3 - 500 Unit Each Day Medications Last Reconciled by Wendy Munoz MD on 08/18/2025 ALLERGIES: levofloxacin REVIEW OF SYSTEMS: A complete 14-point review of systems was performed and is negative except as noted in interval history. PHYSICAL EXAMINATION: VITAL SIGNS: Temperature?96.3, B/P?184/96, Oxygen?Saturation?96% Weight?153?lbs PAIN: 0 - No pain ECOG Performance Status: 0 - Asymptomatic and fully active GENERAL APPEARANCE: Appears well, in no apparent distress, appropriately interactive. HEENT: Normocephalic, no temporal wasting, normal conjunctiva, no scleral icterus, normal hearing, lips without lesions, neck normal range of motion. CARDIOVASCULAR: Not assessed. LEFT BREAT: palplable lump 5 cm at about 2 o?clock, no tenderness, no redness, no axillary lymphadenopathy PULMONARY: Normal respiratory effort, no respiratory distress or use of accessory muscles, speaking in full sentences, no tachypnea. EXTREMITIES: No pedal edema or cyanosis. SKIN: Normal skin appearance. NEUROLOGIC: Alert and oriented x4. PSHYCHIATRIC: Appropriate affect, mood normal, behavior normal, intact thought and speech. LABORATORY DATA: I have personally reviewed and interpreted each of the patient?s relevant lab tests, abnormal findings are below: Date 08/04/25 08/16/25 ??WHITE?BLOOD?COUNT?(Thou/mm3) ? 4.7 ??RED?BLOOD?COUNT?(Miln/mm3) ? 3.78?L ??HEMOGLOBIN?(gm/dl) ? 11.2?L ??HEMATOCRIT?(%) ? 34.8?L ??PLATELET?COUNT?(Thou/mm3) ? 260 ??NEUTROPHILS?%,?AUTO?(%) ? 61 ??LYMPH?%,?AUTO?(%) ? 29 ??NEUTROPHILS,?AUTO?(Thou/mm3) ? 2.8 ??GLUCOSE,RANDOM?(mg/dL) 88 89 ??BLOOD?UREA?NITROGEN?(mg/dL) 11 12 ??CREATININE?(mg/dL) 0.60 0.60 ??SODIUM?(mmol/L) 144 147?H ??POTASSIUM?(mmol/L) 4.0 3.6 ??CHLORIDE?(mmol/L) 112?H 111?H ??CrCl?(CandG)?(ml/min) 76.31 76.31 ??AST/SGOT?(Unit/L) 27 28 ??ALT/SGPT?(Unit/L) 13 14 ??ALKALINE?PHOSPHATASE?(Unit/L) 89 80 ??BILIRUBIN,?TOTAL?(mg/dL) 0.7 0.6 ??PROTEIN?TOTAL?(gm/dl) 5.9 5.6?L ??ALBUMIN,?SERUM?(gm/dl) 4.1 3.9 ??GLOBULIN?(gm/dl) 1.8?L 1.7?L ??ALBUMIN/GLOBULIN?RATIO 2.3?H 2.3?H ??CALCIUM,?SERUM?(mg/dL) 8.3 7.9?L ??CALCIUM?SERUM?(CORRECTED)?(mg/dL) 8.3?L 8.0?L ??CEA?(O*)?(ng/ml) ? 1.6 ASSESSMENT/PLAN: Patient has a history of right breast cancer status post-right mastectomy on 06/08/2018, followed by adjuvant chemotherapy completed in January 2009. She completed 5 years of letrozole in March 2014 and has been recurrence-free since then. Recent diagnostic mammogram and left breast ultrasound revealed a [id number] mm lesion in the left breast, confirmed by biopsy on 06-13-2025. Newly diagnosed invasive lobular carcinoma of left breast Assessment: Biopsy on 06-13-2025 revealed invasive lobular carcinoma, measuring 0.5 cm, with ER more than 95% positive and IN 0 or 2-zero. Physical examination of the left breast reveals at least 5 centimeter lobulated mass. No axillary mass or lymph nodes are palpable. This new diagnosis comes after a history of stage one hormone receptor positive right breast cancer in 2007, for which the patient received adjuvant chemotherapy, one year of Herceptin, followed by letrozole for 5 years. The patient has been cancer-free since completing that treatment. Cpnt tamoxifen Osteoporosis Assessment: Patient has a history of osteoporosis and has been on Prolia since 2020. Last bone density in February 2025 showed normal lumbar spine, but osteoporosis in hips with decreased mineralization. The patient's history of gastric bypass surgery may contribute to nutritional deficiencies affecting bone health. Plan: - Change from Prolia to Xgeva monthly injection, followed by every 3 months - Continue calcium and vitamin D supplementation - Advise taking vitamin D with fatty food, not with coffee or tea - Recommend taking calcium and vitamin D at lunch - Reduce tea intake - Continue fresh vegetable intake and avoid beef as per current diet ORDERS: Order # Description [id number] CBC + Comprehensive Metabolic Panel [id number] Lab Appointment [id number] CBC + Comprehensive Metabolic Panel [id number] Lab Appointment [id number] CBC + Comprehensive Metabolic Panel [id number] Lab Appointment [id number] CBC + Comprehensive Metabolic Panel [id number] Lab Appointment [id number] CBC + Comprehensive Metabolic Panel [id number] Lab Appointment RETURN TO CLINIC: I reviewed the diagnosis, prognosis, and recommended treatment/procedure options with the patient (and/or their legal door to door sales representative), including the potential benefits, risks, side effects and alternative therapies. We also discussed the option of no treatment and the possibility of clinical trial participation, if applicable. All questions were addressed, and they demonstrated understanding. They provided informed consent to proceed with the proposed plan of care. BILLING AND COMPLIANCE: I reviewed external records from providers outside my specialty as summarized above. I spent a total of 50 minutes on this patient?s care on the day of their visit excluding time spent related to any billed procedures. This time includes time spent with the patient as well as time spent documenting in the medical record, reviewing patients records and tests, obtaining history, placing orders, communicating with other healthcare professionals, counseling the patient, family or caregiver, and/or care coordination for the diagnoses above. Electronically Signed by: Roosevelt Hair MD T: 2:15 PM CC: Castro?Gilbert,?DO PCP: Castro Hunt Referring: Castro Hunt This document was completed utilizing speech recognition software. Grammatical errors, random word insertions, pronoun errors, and incomplete sentences are an occasional consequence of this system due to software limitations, ambient noise, and hardware issues. Any formal questions or concerns about the content, text or information contained within the body of this dictation should be directly addressed to the provider for clarification.
== END 2025-08-28 23:59 | disposition home or self-care (01) ==
LOC: SCTC 13:49
PROVIDERS: PCP Family Medicine; Referring Provider Family Medicine; Visit Provider Internal Medicine Hematology & Oncology
DX: C50.411 Malignant neoplasm of upper-outer quadrant of right female breast (principal); Z17.0 Estrogen receptor positive status [ER+]; Z17.22 Progesterone receptor negative status; Z17.32 Human epidermal growth factor receptor 2 negative status; Z79.810 Long term (current) use of selective estrogen receptor modulators (SERMs); M81.0 Age-related osteoporosis without current pathological fracture; Z98.84 Bariatric surgery status
CPT/HCPCS: 99212; G0463

== ENCOUNTER → 2025-09-09 | Outpatient (CLI) | payer MEDICARE, BC, SELFPAY ==
[2025-09-09 10:48] LABS: Basophils # (Auto) 0.0 Thou/mm3 (0.0-0.2); Basophils % (Auto) 1 % (0-2.5); Eosinophils # (Auto) 0.4 Thou/mm3 (0.0-0.5); Eosinophils % (Auto) 7 % (0-10); Hematocrit 35.3 % (36.0-46.0); Hemoglobin 11.1 g/dL (12.0-16.0); Immature Granulocytes Auto 0.02 Thou/mm3 (0.00-0.00); Lymphocytes # (Auto) 1.7 Thou/mm3 (1.0-4.8); Lymphocytes % (Auto) 32 % (10-50); Mean Corpuscular HGB Conc 31.4 g/dl (31.0-37.0); Mean Corpuscular Hemoglobin 29.8 pg (25.0-35.0); Mean Corpuscular Volume 95 fL (80-100); Monocytes # (Auto) 0.4 Thou/mm3 (0.0-0.8); Monocytes % (Auto) 7 % (0-12); Neutrophils # (Auto) 2.8 Thou/mm3 (1.8-7.7); Neutrophils % (Auto) 53 % (37-80); Nucleated Red Blood Cell # 0.00 Thou/mm3 (0.00-0.00); Nucleated Red Blood Cell % 0 /100 WBC (0); Platelet Count 289 Thou/mm3 (140-440); RDW Standard Deviation 48.8 fL (36.4-46.3); Red Blood Count 3.73 Miln/mm3 (4.00-5.20); White Blood Count 5.3 Thou/mm3 (3.6-11.0)
[2025-09-09 11:10] LABS: Alanine Aminotransferase 14 U/L (10-49); Albumin, Serum 3.9 gm/dL (3.4-4.8); Albumin/Globulin Ratio 1.9 (1.2-2.2); Alkaline Phosphatase 78 U/L (46-116); Anion Gap 10 (7-16); Aspartate Amino Transferase 26 U/L (0-34); BUN/Creatinine Ratio 21 Ratio (12-20); Bilirubin,Total 0.6 mg/dL (0.3-1.2); Blood Urea Nitrogen 15 mg/dL (9-23); Calcium 8.7 mg/dL (8.3-10.6); Calcium (Corrected) 8.8 mg/dL (8.5-10.1); Carbon Dioxide 28.1 mMol/L (20.0-31.0); Chloride 109 mMol/L (98-107); Creatinine (Component) 0.7 mg/dL (0.6-1.3); Globulin 2.1 gm/dL (2.3-3.5); Glucose 93 mg/dL (74-106); Osmolality,Calculated 293 (275-295); Potassium 4.4 mMol/L (3.4-5.1); Sodium 147 mMol/L (136-145); Total Protein 6.0 gm/dL (5.7-8.2); eGFR > 60 See Note
[2025-09-09 22:08] LABS: CA 15-3 9.9 U/mL (<32.4); Carcinoembryonic Antigen 1.4 ng/mL (0.0-5.0)
== END | disposition home or self-care (01) ==
LOC: SCTO 09:55
PROVIDERS: PCP Family Medicine; Referring Provider Nurse Practitioner Family; Visit Provider Nurse Practitioner Family
DX: C50.411 Malignant neoplasm of upper-outer quadrant of right female breast (principal)
CPT/HCPCS: 36415; 80053; 82378; 85025; 86300

== ENCOUNTER 2025-09-12 08:36 | Outpatient (RCR) | payer MEDICARE, BC, SELFPAY | END 2025-09-28 23:59 | disposition home or self-care (01) | LOC: SCTC 08:36 | PROVIDERS: PCP Family Medicine; Referring Provider Family Medicine; Visit Provider Internal Medicine Hematology & Oncology | DX: M81.0 Age-related osteoporosis without current pathological fracture (principal); C50.412 Malignant neoplasm of upper-outer quadrant of left female breast; Z17.0 Estrogen receptor positive status [ER+]; Z17.22 Progesterone receptor negative status; Z17.32 Human epidermal growth factor receptor 2 negative status; Z79.810 Long term (current) use of selective estrogen receptor modulators (SERMs) | CPT/HCPCS: 96372; J0897 ==